=== PATIENT | male | born 1950 | race Caucasian/White ===

== ENCOUNTER 2019-11-20 21:39 | Observation (INO) | payer MEDICARE, OTHER ==
[~2019-11-20 21:39] MED LIST: Iopamidol-370 76% 500 ML 1 ML ONE
[2019-11-20 22:31] LABS: #Lymphocytes 0.5 thou/uL (1.20-3.40); #Monocytes 0.5 thou/uL (0.11-0.59); #Neutrophils 5.9 thou/uL (1.40-6.50); %Basophils 0.1 % (0.0-1.0); %Eosinophils 0.3 % (0.0-10.0); %Lymphocytes 6.6 % (21.0-51.0); %Monocytes 6.6 % (0.0-10.0); %Neutrophils 86.3 % (42.0-75.0); Hemoglobin 16.1 g/dL (14.0-18.0); Mean Corpuscular HGB CONC 33.3 g/dL (32.0-36.0); Mean Corpuscular Hemoglobin 31.1 pg (27.0-31.0); Mean Corpuscular Volume 93.5 fL (78.0-98.0); Mean Platelet Volume 8.6 fL (7.4-10.4); Platelet Count 158 thou/uL (130-400); RBC Distribution Width 11.8 % (11.5-14.5); Red Blood Cell (RBC) Count 5.17 mill/uL (4.70-6.10); White Blood Cell (WBC) Count 6.8 thou/uL (4.8-10.8)
[2019-11-20 22:50] LABS: ALT (SGPT) 19 U/L (8-55); AST (SGOT) 17 U/L (5-34); Albumin 4.1 g/dL (3.4-4.8); Alkaline Phosphatase 57 U/L (40-110); Anion Gap 14 mmol/L (10-20); BUN (Urea Nitrogen) 21 mg/dL (8.4-25.7); Bilirubin, Total 0.8 mg/dL (0.2-1.2); Calc. Creatinine Clearance 0 mL/min (70-130); Calcium 9.6 mg/dL (7.8-10.44); Carbon Dioxide 24 mmol/L (23-31); Chloride 107 mmol/L (98-107); Estimated GFR-MDRD 65; Globulin 2.7 g/dL (2.4-3.5); Glucose 154 mg/dL (80-115); Lipase 16 U/L (8-78); Protein, Total 6.8 g/dL (5.8-8.1); Sodium 141 mmol/L (136-145)
[2019-11-20 23:55] LABS: Bacteria/HPF None Seen HPF (None Seen); Bilirubin Negative (Negative); Blood, Urine Negative (Negative); Clarity Clear (Clear); Glucose, Urine (Dipstick) Normal (Negative); Ketone, Urine 40 mg/dL (Negative); Leukocyte Negative Leu/uL (Negative); Nitrite Negative (Negative); Protein, Urine (Dipstick) 30 mg/dL (Neg-Trace); RBC/HPF 0-3 HPF (0-3); Specific Gravity, Urine 1.033 (1.002-1.036); Squamous Epithelial None Seen HPF (0-3); Urobilinogen Normal mg/dL (Less than 2); WBC/HPF 0-3 HPF (0-3); pH, Urine 5.5 (5.0-9.0)
[2019-11-21] MEDS ORDERED: Piperacillin/Tazobactam 4.5 GM VIAL ONE (00:41)
[2019-11-21] MEDS ORDERED: Morphine 4 MG/ML VIAL SLOW IVP PRN (02:18)
[2019-11-21] MEDS ORDERED: Ondansetron ODT 4 MG TAB SL PRN (02:19)
[2019-11-21] MEDS ORDERED: Ondansetron PF 4 MG/2 ML Vial IVP PRN ×2 (02:19→11:38)
[2019-11-21] MEDS: Sodium Chloride 0.9% 1,000 ML IV SCH ×4 (02:30→20:56)
[2019-11-21 02:53] VITALS: BMI 22.4
[2019-11-21 06:15] LABS: ALT (SGPT) 17 U/L (8-55); AST (SGOT) 15 U/L (5-34); Albumin 3.7 g/dL (3.4-4.8); Alkaline Phosphatase 46 U/L (40-110); Anion Gap 12 mmol/L (10-20); BUN (Urea Nitrogen) 22 mg/dL (8.4-25.7); Calc. Creatinine Clearance 71 mL/min (70-130); Carbon Dioxide 23 mmol/L (23-31); Chloride 110 mmol/L (98-107); Estimated GFR-MDRD 74; Globulin 2.6 g/dL (2.4-3.5); Glucose 113 mg/dL (80-115); Lipase 29 U/L (8-78); Potassium 4.3 mmol/L (3.5-5.1); Protein, Total 6.3 g/dL (5.8-8.1); Sodium 141 mmol/L (136-145)
[2019-11-21 06:45] LABS: Hemoglobin 15.5 g/dL (14.0-18.0); Mean Corpuscular HGB CONC 32.4 g/dL (32.0-36.0); Mean Corpuscular Hemoglobin 30.4 pg (27.0-31.0); Mean Corpuscular Volume 93.9 fL (78.0-98.0); Mean Platelet Volume 8.7 fL (7.4-10.4); Platelet Count 138 thou/uL (130-400); RBC Distribution Width 12.1 % (11.5-14.5); Red Blood Cell (RBC) Count 5.08 mill/uL (4.70-6.10); White Blood Cell (WBC) Count 13.1 thou/uL (4.8-10.8)
[2019-11-21 06:47] LABS: Band 37 % (5-11); Lymphocytes 2 % (21-51); MDiff Complete? YES; Metamyelocyte 1 % (0-0); Monocytes 7 % (0-10); Neutrophil 53 % (42-75)
--- NOTE | 2019-11-21 07:03 | CT ---
CT ABDOMEN AND PELVIS WITH IV CONTRAST: Date: 11/20/2019 INDICATION: Lower abdominal pain. No comparison exam. FINDINGS: Lung bases clear. Imaging of the liver reveals a 1.0 cm low density focus in the mid right lobe, possibly representing a small cyst, but too small to adequately characterize. The spleen and pancreas appear unremarkable. Stomach and duodenum unremarkable. Adrenal glands normal. Kidneys unremarkable. Small bowel loops show diffuse distention. Mild fold thickening in the proximal jejunal loops. There is inflammatory change in the right lower quadrant involving the cecum. There is surrounding fl uid. The appendix is mildly prominent with wall enhancement. The appendix measures 9-10 mm diameter. There is fluid surrounding the tip of the appendix. Free fluid is also seen in the deep pelvis with several dilated loops of small bowel in the deep pelv is. Colon is unremarkable. Aorta normal caliber. No adenopathy. IMPRESSION: Inflammatory change in the right lower quadrant involving the cecum and appendix. There is mild mural thickening of the cecum with surrounding fluid. Appendix is upper normal caliber and shows mild enha ncement. There is diffuse small bowel distention which is nonspecific and may be reactive ileus. Findings relayed to Dr. Edwards. CODE CR. POS: RK
[2019-11-21] MEDS ORDERED: Prevnar 13-Val Conj/PF 0.5 ML SYRINGE IM ONE (09:00)
[2019-11-21] MEDS ORDERED: PROPOFOL 200 MG/20 ML VIAL ONE (11:28)
[2019-11-21] MEDS ORDERED: Rocuronium Bromide 10 MG/ML (10ML VIAL) ONE (11:28)
[2019-11-21] MEDS ORDERED: Ondansetron PF 4 MG/2 ML Vial ONE (11:28)
[2019-11-21] MEDS ORDERED: Dexamethasone 20 MG/5 ML VIAL ONE (11:28)
[2019-11-21] MEDS ORDERED: Lidocaine 1% PF 5 ML VIAL ONE (11:28)
[2019-11-21] MEDS ORDERED: EPHEDRINE 25 MG/5 ML SYRINGE ONE (11:28)
[2019-11-21] MEDS ORDERED: Ketorolac Tromethamine 30 MG/ML VIAL ONE (11:28)
[2019-11-21] MEDS ORDERED: Succinylcholine Chloride 20 MG/ML 10 ml SYRINGE FS ONE (11:28)
[2019-11-21] MEDS ORDERED: Dextrose 5% in Water 1,000 ML IV PRN (11:38)
[2019-11-21] MEDS ORDERED: Promethazine HCl 25 MG/ML VIAL IM PRN (11:38)
[2019-11-21] MEDS ORDERED: Dextrose 50% Abboject 50 ML SYRINGE SLOW IVP PRN (11:38)
[2019-11-21] MEDS ORDERED: Morphine 2 MG/ML VIAL SLOW IVP PRN (11:38)
[2019-11-21] MEDS ORDERED: hydrALAZINE 20 MG/ML VIAL SLOW IVP PRN (11:38)
--- NOTE | 2019-11-21 13:01 | RAD ---
EXAM: Single view of the chest HISTORY: Preoperative radiograph COMPARISON: None FINDINGS: Single view of the chest shows a normal sized cardiomediastinal silhouette. There is no golden dence of consolidation, mass, or pleural effusion. The bones are unremarkable IMPRESSION: No evidence of acute cardiopulmonary disease
[2019-11-21] MEDS ORDERED: Fentanyl 100 MCG/2 ML VIAL ONE ×2 (13:09→15:53)
[2019-11-21] MEDS ORDERED: SUGAMMADEX SODIUM 200 MG/2 ML VIAL ONE (13:09)
[2019-11-21] MEDS ORDERED: Bupivacaine/Epinephrine 0.25% 30 ML VIAL ONE (13:14)
--- NOTE | 2019-11-21 14:35 | HP ---
REQUESTING EMERGENCY ROOM PHYSICIAN: Dr. Edwards. CHIEF COMPLAINT: Lower abdominal pain. HISTORY OF PRESENT ILLNESS: This is a 69-year-old gentleman who presented to the emergency room last night complaining of bilateral lower abdominal pain. The patient reports that it had started earlier in the day, not associated with fever, nausea, vomiting, or diarrhea. The patient also denied any urinary symptoms. The patient denied any recent illness, cough, or shortness of breath. The patient states that he went for a normal jog as usual, but was not able to go more than a half a mile. The patient normally runs 5 to 6 miles a day. The patient rated his pain at a 3/10 at its worst. The patient states he also had a shaking sensation with the increased pain, which made him go to the emergency room. The patient was evaluated in the emergency room and a CT abdomen with contrast was obtained indicating an early diagnosis of appendicitis. The patient currently reports pain at 1/10. The patient has been n.p.o. since midnight. The patient was given Zosyn 4.5 g in the emergency room and also normal saline 1 L. REVIEW OF SYSTEMS: A 10-point review of systems is negative unless otherwise indicated in the above HPI. ALLERGIES: NO KNOWN DRUG ALLERGIES. MEDICATIONS: 1. Aspirin 325 mg daily. 2. Multivitamin daily. PAST MEDICAL HISTORY: Mitral valve prolapse diagnosed in the s. The patient has not had any followup since. PAST SURGICAL HISTORY: Tonsillectomy. SOCIAL HISTORY: Denies alcohol use, denies illicit drug use, denies smoking history. The patient is a meteorology researcher. PHYSICAL EXAMINATION: VITAL SIGNS: Blood pressure 130/75, temperature 98.0, pulse 88, respirations 14, and SpO2 of 95% on room air. GENERAL: Well-appearing elderly male, awake, alert, in no distress. HEENT: Head is atraumatic and normocephalic. Mucous membranes are moist. NECK: Trachea is midline. RESPIRATORY: Equal chest rise and fall. Bilateral breath sounds clear. No wheezing, rales, or rhonchi. CARDIOVASCULAR: Regular rate, regular rhythm. 3/6 systolic murmur. No carotid bruits. ABDOMEN: Increased pain with palpation to right lower quadrant. Abdomen is soft. No peritoneal signs. EXTREMITIES: Moves all extremities. No focal deficits. SKIN: [place], warm and dry. NEUROLOGIC: No focal deficits. GCS is 15. LABORATORY DATA: WBC 13.1, RBC 5.08, hemoglobin 15.5, hematocrit 47.8, platelets 138, bands 37. Sodium 141, potassium 4.3, chloride 110, carbon dioxide 23, BUN 22, creatinine 1.00, estimated GFR 74, glucose 113, calcium 9.0, AST 15, ALT 17, alkaline phosphatase 46, serum total protein 6.3. Lipase 29. Urinalysis, negative for UTI. DIAGNOSTICS: Abdomen and pelvis CT with contrast: Impression, inflammatory change in the right lower quadrant involving the cecum and appendix. There is mild mural thickening at the cecum with surrounding fluid. Images under normal caliper and shows mild enhancement. There is diffuse small bowel distention, which is nonspecific and may be reactive ileus. Chest x-ray: Impression, no evidence of acute cardiopulmonary disease. COVID screen is pending. Dr. Cormier did review the abdominal and pelvis CT scan. IMPRESSION: Early onset appendicitis. PLAN: Pain control. N.p.o. with IV maintenance fluids. Possible laparoscopic appendectomy today. The patient was examined and plan was discussed with the patient by Dr. Cormier. Job ID: [id number]
[2019-11-21] MEDS ORDERED: cefOXitin Sodium/Dextrose 2 GM/50 ML BAG ONE (14:47)
[2019-11-21] MEDS ORDERED: Acetaminophen 500 MG TAB PO PRN (16:06)
[2019-11-21] MEDS ORDERED: traMADol HCl 50 MG TAB PO PRN ×2 (16:06)
[2019-11-21] MEDS ORDERED: Ketorolac Tromethamine 30 MG/ML VIAL IVP SCH (18:00)
[2019-11-21] MEDS: Piperacillin/Tazobactam 3.375 GM in Sodium Chloride 0.9% 100 ML IVPB SCH ×2 (18:23→23:56)
--- NOTE | 2019-11-21 19:05 | OP ---
DATE OF PROCEDURE: 11/21/2019 PREOPERATIVE DIAGNOSIS: Acute appendicitis. POSTOPERATIVE DIAGNOSIS: Acute suppurative appendicitis with peritoneal abscess. PROCEDURES PERFORMED: Laparoscopic appendectomy and drainage of peritoneal abscess. ANESTHESIA: General endotracheal. ESTIMATED BLOOD LOSS: 10 mL. FLUIDS GIVEN: 800 mL crystalloids. COUNTS: Sponge and instrument counts were verified as correct x2. COMPLICATIONS: None apparent at the time of operation. INDICATION FOR OPERATION: This is a 69-year-old man, presented with 24-hour history of worsening periumbilical abdominal pain, which settled in the right lower quadrant. Clinical and radiographic examinations were consistent with acute appendicitis, for which the patient was brought to the operating room for appendectomy. Findings are consistent with suppurative retrocecal appendix with moderate amount of peritoneal abscess. DESCRIPTION OF PROCEDURE: Informed consent was obtained from the patient, who was brought to the operating room and placed in supine position. Following general anesthesia, abdomen was sterilely prepped and draped in usual fashion. The skin below the umbilicus was infiltrated with 0.25% Marcaine with epinephrine. A small curvilinear infraumbilical incision was made using an 11 scalpel. Umbilical stalk was grasped with a Elio and elevated. Veress needle was inserted through the incision and placed in the peritoneal cavity, through which the abdomen was insufflated with 3 L of CO2 gas. Intraabdominal pressure was noted at 2 mmHg. Following abdominal insufflation, Veress needle was removed and a 5 mm trocar introduced using a Visiport under laparoscopy. Laparoscopy confirmed proper placement of the port, no injuries to underlying structures. Additional laparoscopy reveals the right lower quadrant completely encased by omental adhesions. There was also smattering amount of fibrinous exudates noted. Under direct laparoscopy, two 5 mm suprapubic and left lower quadrant ports were placed after the overlying skin infiltrated with 0.25% Marcaine with epinephrine and appropriate incision was made. The patient was placed in a Trendelenburg position, rotated to his left. I introduced Prestige grasper through the left lower quadrant port, using this to bluntly take down omental adhesions to expose the retrocecal appendix, which was suppurative. I then introduced an Endo [place] forceps through the suprapubic port site, grasping the appendix, which was elevated. Using LigaSure device, the mesoappendix was sterilely divided down to the base with good hemostasis. Appendix itself was divided at the appendicocecal junction between Endoloop. The suppurative appendix was delivered off the abdominal cavity using an EndoCatch. Moderate amount of purulent pus was evacuated from the pelvis. The pelvis and the operative site were then copiously irrigated with saline. #19 Eduardo drain was introduced into the deep pelvis and allowed to exit the abdominal cavity through the suprapubic port site. The drain was secured to anterior abdominal wall using 2-0 silk suture. Finding no other pathology, laparoscopy was terminated. The abdomen was desufflated. All ports and instruments removed and accounted for. Skin incision closed using 4-0 Monocryl suture in subcuticular fashion. Dermabond was applied over incisional closure. The patient tolerated the operation without any apparent complication and was returned to recovery room in satisfactory condition. Job ID: [id number]
[2019-11-21] MEDS: Famotidine/PF 20 mg/2ml Vial SLOW IVP SCH (20:57)
[2019-11-21] MEDS: Ketorolac Tromethamine 30 MG/ML VIAL IVP SCH (21:33)
--- NOTE | 2019-11-22 02:19 | PRG ---
DATE OF SERVICE: 11/21/2019 SUBJECTIVE: The patient was seen this evening during rounds. He is postoperative day 0 after laparoscopic appendectomy and drainage of peritoneal abscess. Upon my evaluation, he was easily arousable. His abdomen was soft. His BECKY had serosanguineous output. OBJECTIVE: VITAL SIGNS: Temperature 98.3, pulse 73, respirations 18, oxygen saturation 95% on room air, and blood pressure 109/55. GENERAL: Well-appearing elderly male, lying in bed with no signs of acute distress. PULMONARY: Equal chest rise and fall. No signs of acute respiratory distress. CARDIAC: Regular rate and rhythm. GASTROINTESTINAL: Abdomen is soft, nontender, nondistended. BECKY drain to right lower quadrant is in place with serosanguineous output. EXTREMITIES: 2+ pulses in all extremities. Gross motor and sensations intact. No significant swelling noted. ASSESSMENT: Postoperative day 0, status post laparoscopic appendectomy and drainage of peritoneal abscess for acute suppurative appendicitis with peritoneal abscess. PLAN: Continue current full liquid diet with normal saline at 100 an hour. Continue Zosyn for antibiotics. Continue BECKY drain. Job ID: [id number]
[2019-11-22] MEDS: Ketorolac Tromethamine 30 MG/ML VIAL IVP SCH ×2 (04:14→09:48)
[2019-11-22] MEDS: Piperacillin/Tazobactam 3.375 GM in Sodium Chloride 0.9% 100 ML IVPB SCH ×2 (06:03→14:25)
[2019-11-22 06:08] LABS: Anion Gap 9 mmol/L (10-20); BUN (Urea Nitrogen) 22 mg/dL (8.4-25.7); Calc. Creatinine Clearance 69 mL/min (70-130); Calcium 8.4 mg/dL (7.8-10.44); Carbon Dioxide 25 mmol/L (23-31); Chloride 110 mmol/L (98-107); Estimated GFR-MDRD 72; Glucose 100 mg/dL (80-115); Magnesium 2.1 mg/dL (1.6-2.6); Phosphorus 3.2 mg/dL (2.3-4.7); Potassium 3.9 mmol/L (3.5-5.1); Sodium 140 mmol/L (136-145)
[2019-11-22 06:55] LABS: Mean Corpuscular HGB CONC 31.8 g/dL (32.0-36.0); Mean Corpuscular Hemoglobin 30.3 pg (27.0-31.0); Mean Corpuscular Volume 95.3 fL (78.0-98.0); Mean Platelet Volume 8.5 fL (7.4-10.4); Platelet Count 123 thou/uL (130-400); RBC Distribution Width 12.2 % (11.5-14.5); Red Blood Cell (RBC) Count 4.28 mill/uL (4.70-6.10); White Blood Cell (WBC) Count 11.8 thou/uL (4.8-10.8)
[2019-11-22 08:50] LABS: Band 12 % (5-11); Lymphocytes 5 % (21-51); MDiff Complete? YES; Monocytes 4 % (0-10); Neutrophil 79 % (42-75)
[2019-11-22] MEDS: Sodium Chloride 0.9% 1,000 ML IV SCH (09:47)
[2019-11-22] MEDS: Famotidine/PF 20 mg/2ml Vial SLOW IVP SCH (09:48)
[2019-11-22 11:42] VITALS: BP 112/64; TEMP 98.3
[2019-11-22 12:24] LABS: SARS-CoV-2 MS2 Positive; SARS-CoV-2 N Gene Negative; SARS-CoV-2 S Gene Negative; SARS-CoV-2 by NAA Not Detected (NotDetected); SARS-CoV-2 orf1ab Negative
--- NOTE | 2019-11-22 13:28 | DIS ---
DATE OF ADMISSION: 11/21/2019 DATE OF DISCHARGE: 11/22/2019 ADMITTING DIAGNOSIS: Acute appendicitis with perforation. DISCHARGE DIAGNOSIS: Acute appendicitis with perforation. OPERATIONS PERFORMED: Laparoscopic appendectomy and drainage of pelvic abscess on 11/21/[address] Cormier. Please see separate dictation for operative report. HISTORY AND HOSPITAL COURSE: A 69-year-old man admitted with acute appendicitis, for which he underwent an uneventful laparoscopic appendectomy yesterday. Postoperatively, the patient is admitted to the surgical floor, where he remained at time of discharge. Postop day #1, he is ambulating with minimum difficulty. He reports adequate pain control. He is tolerating clear liquid diet. He has had bowel movement and passing flatus. DISCHARGE PHYSICAL EXAMINATION: VITAL SIGNS: Today includes blood pressure 107/60, pulse 72, respiratory rate 16, temperature 98.4 degrees Fahrenheit, oxygen saturation 98% on room air. HEART: Regular rate and rhythm. No murmurs or gallops auscultated. LUNGS: Clear to auscultation bilaterally. Breathing, regular and nonlabored. ABDOMEN: Soft and nondistended. Incisions are intact, clean, and dry. A Marin-Gamez drain had returned 100 mL of serosanguineous fluid since placement. The drain was removed without incident. LABORATORY FINDINGS: Today includes a CBC with 11,800 white blood cells, down from 13,100 yesterday. Hemoglobin and hematocrit are 13.0 and 40.8 respectively. Platelet count 123,000. Differential counts; 79% segmented neutrophils, 12% bands, 5 lymphocytes, and 4 monocytes. Metabolic profile; sodium 140, potassium 3.9, chloride is 110, bicarb is 25, BUN 32, creatinine is 1.03, glucose 100, magnesium 2.1, and phosphorus 3.2. The patient has maximized benefit from this hospital admission. DISCHARGE INSTRUCTIONS: He will be discharged home today with the following instructions; 1. He follows up with me in the [facility] on 12/09/2019 at 02:30 p.m. 2. He is given a prescription for Augmentin 875 mg #14 to be taken one p.o. b.i.d. until all taken. 3. He is given a prescription for tramadol 50 mg #20 to be taken 1 to 2 p.o. q.6 hours p.r.n. breakthrough pain. 4. He may take Tylenol 1000 mg p.o. q.6 hours p.r.n. pain alternating this with ibuprofen 600 mg p.o. q.8 hours p.r.n. pain. 5. The patient is to call me with any questions or problems including exacerbation of abdominal pain, intolerance to oral intake, drainage from the incisional wounds, or fever in excess of 101 degrees Fahrenheit. 6. The patient is to avoid weight lifting in excess of 20 pounds until he has been released by me. He may shower effective tomorrow and avoid swimming or soaking himself in a bathtub for 2 weeks. 7. The patient indicates understanding of information given. I have answered his questions. He has expressed gratitude for the care rendered to him during this hospitalization and surgery. Job ID: [id number]
[2019-11-22] MEDS ORDERED: Amoxicillin/Potassium Clav 875 MG TAB PO SCH (21:00)
== END 2019-11-22 15:55 | disposition home or self-care (01) ==
LOC: ERS 21:39 → SURG B 11-21 00:44
PROVIDERS: ADMIT Surgery; ATTEND Surgery
PROC: 0DTJ4ZZ Resection of Appendix, Percutaneous Endoscopic Approach (ICD-10-PCS; principal; 2019-11-21)
DX: K35.33 Acute appendicitis with perforation, localized peritonitis, and gangrene, with abscess (principal); Z11.59 Encounter for screening for other viral diseases; Z20.828 Contact with and (suspected) exposure to other viral communicable diseases
CPT/HCPCS: 44970; 71045; 74177; 80048; 80053 ×2; 83690 ×2; 83735; 84100; 85007; 85025 ×2; 85027; 87070; 87075; 87076; 87077; 87186; 87205; 88304; 93005; 96361; 96365; 96366 ×2; 96375; 96376; 97139 ×3; 99285; G0378 ×3; U0003; 36415; 81003; 81015; 87635; 93010; J0694; J1100; J1885; J2405; J2543; J2704; J3010; J3490; Q9967; S0028

== ENCOUNTER 2025-03-13 10:47 | Emergency (ER) | payer MEDICARE, OTHER ==
[2025-03-13] MEDS ORDERED: Cephalexin 250 MG CAP ONE (12:31)
[2025-03-13] MEDS ORDERED: Lidocaine 1% w/Epinephrine 1:100K 20 ML VIAL ONE (12:31)
[2025-03-13] MEDS ORDERED: Bacitracin 1 PK ONE (12:31)
== END 2025-03-13 13:14 | disposition home or self-care (01) ==
LOC: ERS 10:47
DX: S81.812A Laceration without foreign body, left lower leg, initial encounter (principal); Z23 Encounter for immunization; W22.8XXA Striking against or struck by other objects, initial encounter
CPT/HCPCS: 12004; 90471; 90715